=== PATIENT | female | born 1980 | race Caucasian/White ===

== ENCOUNTER 2025-03-19 08:46 | Emergency (ER) | payer MEDICAID, OTHER ==
[2025-03-19 09:16] LABS: APPEARANCE,URINE CLEAR (CLEAR); GLUCOSE,URINE NEGATIVE (NEGATIVE); OCCULT BLOOD,URINE SMALL (NEGATIVE)
[2025-03-19 09:18] LABS: SQUAMOUS EPITHELIAL CELLS,UR NOT SEEN /HPF
== END 2025-03-19 09:43 | disposition home or self-care (01) ==
LOC: JP.ED 08:46
DX: N39.0 Urinary tract infection, site not specified (principal); Z79.899 Other long term (current) drug therapy
CPT/HCPCS: 81001; 87086; 99283